=== PATIENT | male | born 1995 | race Hispanic/Latino ===

== ENCOUNTER 2025-04-20 18:31 | Emergency (ER) | payer BC, MEDICAID, OTHER ==
[~2025-04-20] VITALS: Ht 172.7 cm; Wt 113.4 kg
--- NOTE | 2025-04-20 18:49 | ERN ---
General Chief Complaint: FOOT INJURY/PAIN Stated Complaint: NAIL RT FOOT Time Seen by MD: 18:35 Time Seen by Midlevel: 18:35 Source: patient History of Present Illness Initial Comments Patient is a 29-year-old male presenting to the emergency department after he stepped on a lillian nail. He has already been evaluated by an outside physician the area was cleansed and a sterile gauze was placed. He is presenting today for his tetanus vaccination since he has not received one in over 10 years. He does report the nail going through his shoe. Allergies: Coded Allergies: Sulfa (Sulfonamide Antibiotics) (Unverified Allergy, Unknown, 04/20/25) Past Medical History Past Medical History: No Pertinent History Past Surgical History: None ROS Dictation CONSTITUTIONAL: Negative except for HPI HEAD/FACE: Negative except for HPI EENT: Negative except for HPI RESPIRATORY: Negative except for HPI GASTROINTESTINAL/ABDOMINAL: Negative except for HPI GENITOURINARY: Negative except for HPI MUSCULOSKELETAL: Negative except for HPI INTEGUMENTARY: Negative except for HPI NEUROLOGICAL/PSYCH: Negative except for HPI HEMATOLOGIC/LYMPHATIC: Negative except for HPI All Systems Negative, Except as noted above. 13 point review of systems assessed and all negative except for above. Physical Exam Physical Exam Dictation Vital Signs reviewed General Appearance: Alert, oriented x 3, no acute distress, well developed, nourished. Head and Face: non-traumatic. Eyes: PERRL, pink conjunctivas, eyelid no trauma, anterior chamber with arcus senilis. Ears: Pinnas intact and no signs of trauma or erythema ear canals clear and no discharge TM no erythema Nose: No discharge, no bleeding. Oropharynx: Mouth normal, tongue pink, pharynx clear,no erythema, tonsils no exudates, no abscesses noted, mucous membrane moist Neck: Supple, non-tender, no thyromegaly, no masses, no JVD, no bruits Breast:Deferred Chest:No tenderness, no crepitus, no paradoxical movement, no retractions Lungs:Clear, well-ventilated, symmetric, no rales, no wheezing, no rhonchi, no stridor, good breath sounds bilaterally Heart: Regular rate, regular rhythm, no murmur, no gallops Vascular: no peripheral edema, Abdomen: Soft, positive bowel sounds, nondistended, no guarding, nontender, no rebound, no masses no hepatomegaly, no splenomegaly, no Almeida's sign, no hernias. Rectal: Deferred Genital: Deferred Neurological: Normal speech, motor function intact, sensory function intact Musculoskeletal: Neck nontender, full range of motion, back nontender, full range of motion, Extremities: nontender, full range of motion Skin: Puncture wound to the right foot Lymphatic: Deferred MDM MDM: Differential diagnosis: Puncture wound, laceration, abrasion There are no social concerns with this patient. Prescription drug management Prescriptions will include: Ciprofloxacin Medical management and examination interpretation discussions were had by me with other qualified healthcare professionals as indicated for the patient's care. ED Course Orders Procedure Category Date Status Time Tetanus,Diphtheria PHA 04/20/25 Logged Tox [Adult] (Diphther 19:00 Current Medications Medications (Trade) Dose Ordered Sig/Lucia Route PRN Reason Start Time Stop Time Status Last Admin Dose Admin Tetanus/ Diphtheria Toxoids Adsorbed (DiphthERIA-teTANUS TOXOID [ADULT]/ DECAVAC) 0.5 ml ONCE ONCE IM 04/20/25 19:00 04/20/25 19:01 UNV Vital Signs Date Time Temp Pulse Resp B/P (MAP) Pulse Ox O2 Delivery O2 Flow Rate FiO2 04/20/25 18:33 98.2 74 18 130/83 99 DX & DISP Disposition: Discharge Departure Impression: Primary Impression: Puncture wound of right foot Condition: Stable Scripts Ciprofloxacin HCl (Cipro) 500 Mg Tablet 1 TAB PO BID for 10 Days, #20 TAB 0 Refills Prov: ELISABET STREETER PAC 04/20/25 Referrals: RAMAN ARMANDO (PCP) I have reviewed the case, and I agree with, Diagnosis and Plan I performed the substantive portion of the visit. I have reviewed and personally made and approve the management plan that is documented in the note by myself or the MOY. I acknowledge for responsibility for the patient's management plan. ELISABET STREETER PAC Apr 20, 2025 18:49
[2025-04-20 19:38] VITALS: BP 130/83; PULSE 74; RESP 18; TEMP 98.2; O2SAT 99
== END 2025-04-20 19:53 | disposition home or self-care (01) ==
LOC: EDH 18:31
DX: S91.331A Puncture wound without foreign body, right foot, initial encounter (principal); Z88.2 Allergy status to sulfonamides; W45.0XXA Nail entering through skin, initial encounter; Y93.89 Activity, other specified; Y92.89 Other specified places as the place of occurrence of the external cause; Y99.8 Other external cause status
CPT/HCPCS: 90471; 90714; 99283